=== PATIENT | male | born 1985 | race Caucasian/White ===

== ENCOUNTER 2023-07-04 13:54 | Outpatient (AMB) | payer SELFPAY ==
--- NOTE | 2023-07-04 14:14 | MHC.OFFWIV ---
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 happened at work in a restroom Patient Tobacco Use Status: Never used Tobacco Allergies No Known Allergies [No Known Allergies*] Allergy (Verified 07/04/23 14:22) Do you need a note to return to daycare/school/sports/work: Yes HPI HPI Comments History of Present Illness Details 38-year-old male presents for foot injury. Patient states that he was at work couple days ago and passed out. He does not recall hitting his foot does not recall any trauma to the area I but bites or injections. over the last couple days is foot become red and swollen. He endorses Chills but has not taken his temperatures PFSH Social History Patient Tobacco Use Status: Never used Tobacco Review of Systems Const All systems reviewed & are unremarkable except as noted in HPI and below Reports chills Musc Details: foot swelling Skin/Breast Reports change in pigmentation Physical Exam Vital Signs: Last Vital Signs Temp 97.9 F 07/04/23 14:20 Pulse 116 H 07/04/23 14:20 BP 122/76 07/04/23 14:20 Pulse Ox 98 07/04/23 14:20 BMI result Body Mass Index 26.2 Const General: no acute distress and alert Extrem Other: extensive erythema and warmth to the dorsum of right foot. Swelling of all the digits. Assessment & Plan Assessment & Plan (1) Cellulitis: Code(s): L03.90 - Cellulitis, unspecified Plan patient's exam consistent with cellulitis of the foot. Patient is not diabetic lines any trauma to the area so no imaging at this time patient was hesitant to take antibiotics but stress the importance. Patient showed me he will pick them up in take them. Discharge instructions, follow up and treatment are discussed with patient in my usual fashion. Alternatives in treatment are also discussed. The patient will return for worsening symptoms or as needed. Advised that any labs/imaging ordered will be followed up on and contact made if further treatment needed. Counseled that patient's condition may require further evaluation and/or treatment. Symptoms of concern for worsening disorder discussed in detail in my customary manner. Patient does verbalize understanding of the plan, there are no apparent barriers to communication. The patient is given the opportunity to ask questions and have them answered to his/her satisfaction Medications: New cephalexin 500 mg PO QID 7 days 28 caps 0RF Coding Level of Care Code New Pt Level 4 (68480) Diagnoses Cellulitis L03.90
[2023-07-04 14:20] VITALS: BP 122/76; PULSE 116; TEMP 36.6; O2SAT 98; BMI 26.2
== END 2023-07-04 14:53 | disposition home or self-care (01) ==
PROVIDERS: Visit Provider Physician Assistant
DX: L03.90 Cellulitis, unspecified (principal)
CPT/HCPCS: 99204

== ENCOUNTER 2023-07-12 11:26 | Outpatient (AMB) | payer SELFPAY ==
--- NOTE | 2023-07-12 11:39 | AM.OFFWIN_ITS ---
Intake Vital Signs 3 07/12/23 11:40 Height 5 ft 11 in Weight 80.739 kg BMI 24.8 BP 124/82 Blood Pressure Location Rt brachial Position Sitting Pulse 113 H Pulse Source Pulse Oximeter Pulse Oximetry (%) 98 Oxygen Delivery Method Room Air Intake Visit Reasons: EP, Right foot pain Intake Note: Patient here for right foot pain and swelling which started about 2 weeks ago. Patient Tobacco Use Status: Never used Tobacco Allergies No Known Allergies [No Known Allergies*] Allergy (Verified 07/04/23 14:22) Do you need a note to return to daycare/school/sports/work: Yes HPI HPI Comments 2 History of Present Illness0 Details 1218 38 yo m w/o significant medial hx presen ts w/ worsening right foot cellulitis, he reports this has been going on for 2 weeks is currently on antibiotics as a few days left however not seeing significant improvement. Reports subjective chills. Reports pain, swelling. Denies numbness and tingling Physical exam significant for erythema and warmth to right foot, there is tinea pedis noted with onchymycosis to all fingernails of the right foot. Normal sensation distally. Is patient's erythema is beyond marked area with some streaking up the right lower extremity, recommended emergency department for IV antibiotics and possible imaging arterial and venous. Patient tells me he thinks he will be fine and he wants to complete a course of antibiotics. I explained him this is very dangerous he could lose a limb and from a septic infection/bacteria on blood stream. Patient tells me he will think about it. 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 Patient to be leaving against medical advice verbalizes understanding of risks associated with this [facility] Social History Patient Tobacco Use Status: Never used Tobacco Review of Systems Const Details: Constitutional : No Weight loss, No Fever, No Chills, No Fatigue, No Malaise ENT/Mouth : No sore throat, No Rhinorrhea Eyes: No Eye Pain, No Swelling, No Redness Cardiovascular : No Chest Pain, No SOB, No Dyspnea on Exertion, No Orthopnea, No Edema, No Palpitations Respiratory : No Cough, No Sputum, No Wheezing Gastrointestinal : No Nausea, No Vomiting, No Diarrhea, No Constipation, No abdominal Pain, No Hematochezia, No Melena Genitourinary : No Dysuria, No Urinary Frequency, No Hematuria, Musculoskeletal : + joint pain, No Myalgias, + Joint Swelling Skin : No Skin Lesions, No rash Neuro : No Weakness, No Numbness, No Dizziness, No Headache Psych : No Anxiety/Panic, No Depression All other systems reviewed and are negative All systems reviewed & are unremarkable except as noted in HPI and below Physical Exam Vital Signs: Last Vital Signs Pulse 113 H 07/12/23 11:40 BP 124/82 07/12/23 11:40 Pulse Ox 98 07/12/23 11:40 Oxygen Delivery Method Room Air 07/12/23 11:40 BMI result Body Mass Index 24.8 vss Appearance: Alert.? Oriented X3.? No acute distress.? Head: Normocephalic, atraumatic Eyes: Pupils equal, round and reactive to light.? Neck: Normal inspection.? Neck supple.? CVS: Pulses normal.? Respiratory: No respiratory distress.? Skin: Skin warm and dry.? Normal skin color.? Normal skin turgor.? Extremities 5/5 strength to bilateral upper and lower extremities. + erythema, warmth, tinea pedis to right foot with onchymycosis of all nails on r toe. Discoloration of skin ( images below) Sensation intact distally Back: No midline tenderness, no C-spine tenderness, full range of motion, no CVA tenderness bilaterally Neuro: Oriented X 3.? No motor deficit.? No sensory deficit. CN 2-12 intact Assessment & Plan Assessment & Plan (1) Cellulitis: Code(s): L03.90 - Cellulitis, unspecified (2) Left against medical advice: Code(s): Z53.29 - Procedure and treatment not carried out because of patient's decision for other reasons Plan Take your medications as prescribed. If you were prescribed antibiotics today, it is important that you take your medication to their entirety, do not skip any doses, do not finish them early. Follow-up with your primary care provider this week. Return to the emergency department with new or worsening symptoms. Such as fevers, chills, chest pain, shortness of breath, nausea, vomiting, dizziness, headache, vision changes, lethargy In case of emergency call 911 Coding Level of Care Code Est Pt Level 3 (37616) Diagnoses Cellulitis L03.90 Left against medical advice Z53.29
[2023-07-12 11:40] VITALS: BP 124/82; PULSE 113; O2SAT 98; BMI 24.8
== END 2023-07-12 12:22 | disposition home or self-care (01) ==
PROVIDERS: Visit Provider Physician Assistant
DX: L03.90 Cellulitis, unspecified (principal); Z53.29 Procedure and treatment not carried out because of patient's decision for other reasons
CPT/HCPCS: 99213